=== PATIENT | female | born 1990 | race Caucasian/White ===

== ENCOUNTER 2018-01-10 20:27 | Emergency (ER) | payer BC, OTHER ==
[2018-01-10 21:58] LABS: ABS Basophils 0.1 10^3/ul (0-0.2); ABS Eosinophils 0.2 10^3/ul (0-0.6); ABS Lymphocytes 3.6 10^3/ul (1.0-4.8); ABS Monocytes 0.7 10^3/ul (0-0.8); ABS Neutrophils 6.9 10^3/ul (1.5-7.7); ABS Nucleated RBC 0 10^3/ul; Eosinophil % 1.7 % (0-6); Hematocrit 35 % (35-47); Hemoglobin 11.9 g/dl (12.0-16.0); Mean Corpuscular HGB Conc 35 g/dl (31-36); Mean Corpuscular Hemoglobin 30 pg (27-31); Mean Corpuscular Volume 86 fL (80-97); Mean Platelet Volume 8.7 um3 (7.4-10.4); Nucleated Red Blood Cells % 0.1; Platelet Count 330 10^3/ul (150-450); Red Cell Distribution Width 13 % (10.5-15); White Blood Count 11.4 10^3/ul (3.5-10.8)
[2018-01-10 22:00] LABS: Urine Appearance Clear; Urine Blood Negative (Negative); Urine Color Straw; Urine Ketones Negative (Negative); Urine Protein Negative (Negative); Urine Specific Gravity 1.003 (1.010-1.030); Urine Urobilinogen Negative (Negative)
[2018-01-10 22:15] LABS: EGFR Non-African American 88.6 (>60)
--- NOTE | 2018-01-10 22:58 | ED ---
HPI Cardiac - HPI Summary HPI Summary: Patient here with diffuse abdominal pain 1 week. Tonight she is experiencing shortness of breath with pain radiating into her right shoulder blade area. She describes the SOB as being cause by a full ab - feels she has air trapped along her upper abdomen. She denies nausea, vomiting however has had some diarrhea and typically she's constipated. Admits she had Montes's last night. Has been feeling bloated and having which she describes as indigestion. Denies fevers, chills, chest pain, urinary symptoms, flank pain, bloody cough, vaginal irritation/discharge. She has asthma and used an albuterol inhaler prior to arrival tonight - does not feel it helped her sx. Admits once the pain set in, her breathing became more difficult, triggering anxiety. She also admits to cervical and upper thoracic disc herniations - was moving furniture recently. Denies acute pain, numbness, tingling, weakness. - History of Current Complaint Chief Complaint: EDShortnessOfBreath Stated Complaint: DIFF BREATHING Time Seen by Provider: 01/10/18 20:39 Hx Obtained From: Patient Pain Intensity: 3 - Allergy/Home Medications Allergies/Adverse Reactions: Allergies Allergy/AdvReac Type Severity Reaction Status Date / Time bupropion [From Wellbutrin] Allergy Anaphylatic Verified 01/10/18 20:51 Shock Home Medications: Home Medications Albuterol HFA INHALER* [Ventolin HFA Inhaler*] 2 puff INH Q4H PRN 01/10/18 [ History Confirmed 01/10/18] Cholecalciferol TAB* [Vitamin D TAB*] 1,000 unit PO DAILY 01/10/18 [History Confirmed 01/10/18] Ibuprofen TAB* [Motrin TAB* 800 MG] 800 mg PO TID PRN 01/10/18 [History Confirmed 01/10/18] Multivitamins/Minerals TAB* [Theragran/minerals TAB*] 1 tab PO DAILY 01/10/18 [ History Confirmed 01/10/18] Multivitamins/Minerals TAB* [Theragran/minerals TAB*] 1 tab PO DAILY 01/10/18 [ History Confirmed 01/10/18] Norethindrone AC-Eth Estradiol [Junel 10/23] 1 tab PO DAILY 01/10/18 [History Confirmed 01/10/18] Sertraline* [Zoloft*] 100 mg PO DAILY 01/10/18 [History Confirmed 01/10/18] PMH/Surg Hx/FS Hx/Imm Hx Previously Healthy: Yes - Immunization History Date of Influenza Vaccine: has not received Infectious Disease History: No Infectious Disease History: Denies: Traveled Outside the [place] in Last 30 Days - Social History Alcohol Use: None Substance Use Type: Reports: None Smoking Status (MU): Never Smoked Tobacco Physical Exam Triage Information Reviewed: Yes Vital Signs On Initial Exam: Initial Vitals Temp Pulse Resp BP Pulse Ox 98.5 F 74 16 114/61 99 01/10/18 20:35 01/10/18 20:35 01/10/18 20:35 01/10/18 20:35 01/10/18 20:35 Vital Signs Reviewed: Yes Appearance: Positive: Well-Appearing, No Pain Distress, Well-Nourished Skin: Positive: Warm, Skin Color Reflects Adequate Perfusion, Dry Head/Face: Positive: Normal Head/Face Inspection Eyes: Positive: Normal, EOMI, Conjunctiva Clear - anicteric sclera ENT: Positive: Normal ENT inspection, Hearing grossly normal, Pharynx normal, TMs normal. Negative: Tonsillar swelling, Tonsillar exudate Neck: Positive: Supple, Nontender, No Lymphadenopathy Respiratory/Lung Sounds: Positive: Clear to Auscultation, Breath Sounds Present. Negative: Rales, Rhonchi, Stridor, Tracheal Deviation, Wheezes, Unable to speak in full sentences, Fatigue Cardiovascular: Positive: Normal, Pulses are Symmetrical in both Upper and Lower Extremities, S1, S2. Negative: Murmur, Rub, Leg Edema Left, Leg Edema Right - (-) Vikash's Abdomen Description: Positive: Soft, Distended - mild, Other: - diffuse TTP but most tender in RUQ - + García's. Negative: CVA Tenderness (R), CVA Tenderness ( L), Guarding Bowel Sounds: Positive: Present Musculoskeletal: Positive: Normal, Strength/ROM Intact Neurological: Positive: Normal, Sensory/Motor Intact, Alert, Oriented to Person Place, Time, CN Intact II-III Psychiatric: Positive: Normal Diagnostics - Vital Signs Vital Signs Temp Pulse Resp BP Pulse Ox 01/10/18 22:30 87 103/52 98 01/10/18 22:00 75 98/40 100 01/10/18 21:30 88 114/67 100 01/10/18 21:00 77 111/58 100 01/10/18 20:49 77 99 01/10/18 20:47 114/61 01/10/18 20:35 98.5 F 74 16 114/61 99 - Laboratory Lab Results: Lab Results 01/10/18 01/10/18 01/10/18 Range/Units 21:40 21:40 21:40 WBC 11.4 H (3.5-10.8) 10^3/ul RBC 4.00 (4.0-5.4) 10^6/ul Hgb 11.9 L (12.0-16.0) g/dl Hct 35 (35-47) % MCV 86 (80-97) fL MCH 30 (27-31) pg MCHC 35 (31-36) g/dl RDW 13 (10.5-15) % Plt Count 330 (150-450) 10^3/ul MPV 8.7 (7.4-10.4) um3 Neut % (Auto) 60.1 (38-83) % Lymph % (Auto) 31.0 (25-47) % [place] % (Auto) 6.2 (0-7) % Eos % (Auto) 1.7 (0-6) % Baso % (Auto) 1.0 (0-2) % Absolute Neuts (auto) 6.9 (1.5-7.7) 10^3/ul Absolute Lymphs (auto) 3.6 (1.0-4.8) 10^3/ul Absolute Monos (auto) 0.7 (0-0.8) 10^3/ul Absolute Eos (auto) 0.2 (0-0.6) 10^3/ul Absolute Basos (auto) 0.1 (0-0.2) 10^3/ul Absolute Nucleated RBC 0 10^3/ul Nucleated RBC % 0.1 Sodium 139 (139-145) mmol/L Potassium 3.5 (3.5-5.0) mmol/L Chloride 106 (101-111) mmol/L Carbon Dioxide 25 (22-32) mmol/L Anion Gap 8 (2-11) mmol/L BUN 13 (6-24) mg/dL Creatinine 0.78 (0.51-0.95) mg/dL Est GFR ( Amer) 113.9 (>60) Est GFR (Non-Af Amer) 88.6 (>60) BUN/Creatinine Ratio 16.7 (8-20) Glucose 90 (70-100) mg/dL Lactic Acid (0.5-2.0) mmol/L Calcium 9.4 (8.6-10.3) mg/dL Magnesium 2.0 (1.9-2.7) mg/dL Total Bilirubin 0.20 (0.2-1.0) mg/dL AST 23 (13-39) U/L ALT 21 (7-52) U/L Alkaline Phosphatase 73 (34-104) U/L C-Reactive Protein 17.54 H (< 5.00) mg/L Total Protein 7.1 (6.4-8.9) g/dL Albumin 3.9 (3.2-5.2) g/dL Globulin 3.2 (2-4) g/dL Albumin/Globulin Ratio 1.2 (1-3) Lipase 16 (11.0-82.0) U/L Beta HCG, Quant < 0.60 mIU/mL Urine Color Straw Urine Appearance Clear Urine pH 9.0 (5-9) Ur Specific [place] 1.003 L (1.010-1.030) Urine Protein Negative (Negative) Urine Ketones Negative (Negative) Urine Blood Negative (Negative) Urine Nitrate Negative (Negative) Urine Bilirubin Negative (Negative) Urine Urobilinogen Negative (Negative) Ur Leukocyte Esterase Negative (Negative) Urine Glucose Negative (Negative) 01/10/18 Range/Units 21:40 WBC (3.5-10.8) 10^3/ul RBC (4.0-5.4) 10^6/ul Hgb (12.0-16.0) g/dl Hct (35-47) % MCV (80-97) fL MCH (27-31) pg MCHC (31-36) g/dl RDW (10.5-15) % Plt Count (150-450) 10^3/ul MPV (7.4-10.4) um3 Neut % (Auto) (38-83) % Lymph % (Auto) (25-47) % [place] % (Auto) (0-7) % Eos % (Auto) (0-6) % Baso % (Auto) (0-2) % Absolute Neuts (auto) (1.5-7.7) 10^3/ul Absolute Lymphs (auto) (1.0-4.8) 10^3/ul Absolute Monos (auto) (0-0.8) 10^3/ul Absolute Eos (auto) (0-0.6) 10^3/ul Absolute Basos (auto) (0-0.2) 10^3/ul Absolute Nucleated RBC 10^3/ul Nucleated RBC % Sodium (139-145) mmol/L Potassium (3.5-5.0) mmol/L Chloride (101-111) mmol/L Carbon Dioxide (22-32) mmol/L Anion Gap (2-11) mmol/L BUN (6-24) mg/dL Creatinine (0.51-0.95) mg/dL Est GFR ( Amer) (>60) Est GFR (Non-Af Amer) (>60) BUN/Creatinine Ratio (8-20) Glucose (70-100) mg/dL Lactic Acid 1.9 (0.5-2.0) mmol/L Calcium (8.6-10.3) mg/dL Magnesium (1.9-2.7) mg/dL Total Bilirubin (0.2-1.0) mg/dL AST (13-39) U/L ALT (7-52) U/L Alkaline Phosphatase (34-104) U/L C-Reactive Protein (< 5.00) mg/L Total Protein (6.4-8.9) g/dL Albumin (3.2-5.2) g/dL Globulin (2-4) g/dL Albumin/Globulin Ratio (1-3) Lipase (11.0-82.0) U/L Beta HCG, Quant mIU/mL Urine Color Urine Appearance Urine pH (5-9) Ur Specific [place] (1.010-1.030) Urine Protein (Negative) Urine Ketones (Negative) Urine Blood (Negative) Urine Nitrate (Negative) Urine Bilirubin (Negative) Urine Urobilinogen (Negative) Ur Leukocyte Esterase (Negative) Urine Glucose (Negative) Result Diagrams: 01/10/18 21:40 01/10/18 21:40 Lab Statement: Any lab studies that have been ordered have been reviewed, and results considered in the medical decision making process. Discharge - Sign-Out/Discharge Documenting (check all that apply): Discharge - Discharge Plan Condition: Stable Disposition: HOME Patient Education Materials: Thoracic Pain (ED) Referrals: Yaron Kennedy NP [Primary Care Provider] - Additional Instructions: The definitive cause of your symptoms were not identified this evening. However , acute life-threatening condition such as aortic dissection, pulmonary embolism , pneumothorax, heart attack, pneumonia, gallbladder infection/obstruction were ruled out. It is suspected that part of your symptoms in the right posterior shoulder blade area were triggered by recent activity during moving. He may continue to try NSAIDs along with heat alternating with ice and breathing exercises. Follow up with PCP in the next couple of days for recheck of symptoms and more testing as needed. Call later today to schedule an appointment. *If you develop return of shortness of breath, fever, difficulty swallowing, intractable vomiting or diarrhea, bloody cough, dizziness or syncope, return to the emergency department - Billing Disposition and Condition Condition: STABLE Disposition: HOME
[2018-01-11] MEDS ORDERED: Diazepam TAB(*) 5 MG PO ONE (01:25)
[2018-01-11] MEDS ORDERED: Ketorolac INJ* 30 MG/ML 1 ML VIAL IV PUSH ONE (01:25)
[2018-01-11 02:03] VITALS: BP 105/70
--- NOTE | 2018-01-11 07:20 | RAD ---
INDICATION: Right shoulder blade pain, bloating. COMPARISON: There are no prior studies available for comparison. TECHNIQUE: Multiple real-time images of the right upper quadrant were obtained. FINDINGS: The gallbladder appear normal. No gallbladder wall thickening or pericholecystic fluid is present. No intra or extrahepatic ductal distention is present. The common bile duct measured 0.1 cm in diameter. The liver is normal in size without significant focal abnormality. The pancreas is partially obscured by overlying bowel gas. The right kidney is normal in size without evidence for hydronephrosis. IMPRESSION: NEGATIVE EXAM.
--- NOTE | 2018-01-11 07:33 | RAD ---
INDICATION: Shortness of breath. COMPARISON: There are no prior studies available for comparison. TECHNIQUE: A portable view of the chest was obtained. FINDINGS: Cardiac and mediastinal contours appear to be within normal limits. The lungs are clear. No pleural effusion is seen. IMPRESSION: NO EVIDENCE FOR ACUTE DISEASE.
== END 2018-01-11 01:45 | disposition home or self-care (01) ==
LOC: SUPCPDRO 20:27 → ED 20:27
DX: R06.02 Shortness of breath (principal); M25.511 Pain in right shoulder; R10.84 Generalized abdominal pain; M50.20 Other cervical disc displacement, unspecified cervical region; M51.24 Other intervertebral disc displacement, thoracic region; Z32.02 Encounter for pregnancy test, result negative; Z88.8 Allergy status to other drugs, medicaments and biological substances
CPT/HCPCS: 36415; 71045; 76705; 80053; 81003; 83605; 83690; 83735; 84484; 84702; 85025; 85379; 86140; 93005; 96374; 99284; A9270-GY; J1885

== ENCOUNTER 2019-06-29 17:46 | Emergency (ER) | payer MEDICAID ==
--- OUTSIDE RECORDS SUMMARY | 2019-06-29 18:05 | XMS REPORT | Continuity of Care Document ---
:1990 External Reference #:[id number] Author Name Yaron Kennedy NRandy Address [address] [place] [id number] Problems Active Problems Provider Date Chronic pain Yaron Kennedy NRandy Onset: 05/04/2017 Note: R neck/shoulder Mood disorder Yaron Kennedy N.Tiffany Onset: 06/18/2017 Social History Type Date Description Comments Sex Unknown Tobacco Use Start: Unknown Never Smoked Cigarettes Tobacco Use Start: Unknown Patient has never smoked Smoking Status Reviewed: 11/12/17 Patient has never smoked Allergies, Adverse Reactions, Alerts Active Allergies Reaction Severity Comments Date Wellbutrin 06/18/2017 Inactive Allergies NKDA 07/22/2006 Medications Active Medications SIG Qnty Indications Ordering Date Provider Prilosec OTC 1 by mouth 30tabs Brent, 06/20/2019 20mg Tablets every day Yaron N.P. Albuterol Sulfate HFA 2 puffs four 1units Brent, 12/06/2018 times a day as Mashelle, N.P. 108(90Base) mcg/Act needed Aerosol Loratadine 1 by mouth 30tabs Brent, 04/07/2018 10mg Tablets every day Mashelle, N.P. Symbicort inhale two 10.2units Brent, 04/07/2018 160-4.5mcg/Act puffs by mouth Mashelle, N.P. Aerosol twice a day Hydroxyzine HCL 1-2 by mouth 30tabs Brent, 01/18/2018 25mg three times a Mashelle, N.P. Tablets day as needed Ibuprofen 1 by mouth 60tabs Brent, 11/02/2016 800mg Tablets three times a Mashelle, N.P. day with food Sertraline HCL 1 by mouth 90tabs Brent, 09/22/2016 100mg every day Yaron, N.P. Tablets Norethindrone & Unknown Ethinyl Estradiol Ferrous Fumarate 0.8-25mg-mcg Chewtabs History Medications Cephalexin 1 by mouth four 28caps Kirill Kennedyjames, 04/24/2019 - 500mg times a day x 7 N.P. 06/20/2019 Capsules days Immunizations CPT Code Status Date Vaccine Lot # [id number] Given 08/09/2018 Influenza Vac, Quadrivalent, Split, 0.5mL Dosage, Im Use 38871 Given 05/04/2016 MMR Virus Immunization 39927 Given 05/04/2016 Tdap (Adacel) Ages 7 And Above Only Q2038 Given 05/24/2015 Fluzone Trivalent Immunization Q2038 Given 07/18/2013 Fluzone Trivalent Immunization 67895 Given 07/07/2007 HPV Vaccine (Gardasil) 3 Dose Schedule 30199 Given 07/07/2007 HPV Vaccine (Gardasil) 3 Dose Schedule [id number] 86329 Given 03/07/2007 HPV Vaccine (Gardasil) 3 Dose Schedule [id number] 85584 Given 01/04/2007 HPV Vaccine (Gardasil) 3 Dose Schedule [id number] 24775 Given 07/22/2006 Tdap (Adacel) Ages 7 And Above Only C [id number] 22861 Given 07/22/2006 DTP Immunization 57631 Given 07/22/2006 DTaP Immunization 6 Yrs & Younger Q2038 Ordered 06/14/2013 Fluzone Trivalent Immunization 28931 Refused 06/20/2019 Influenza Vac, Quadrivalent, Split, 0.5mL Dosage, Im Use 89224 Refused 07/22/2018 Influenza Vac, Quadrivalent, Split, 0.5mL Dosage, [place] Use 72512 Refused 07/22/2018 Pneumococcal 23 Immunization Adult Or Immunosuppressed Patient 90815 Refused 11/12/2017 Influenza Vac, Quadrivalent, Split, 0.5mL Dosage, Im Use Vital Signs Date Vital Result Comment 06/20/2019 2:01pm Body Temperature 98.2 F Weight 163.25 lb Heart Rate 83 /min BP Systolic 115 mmHg BP Diastolic 58 mmHg O2 % BldC Oximetry 98 % 04/24/2019 10:58am Body Temperature 98.2 F Weight 162.12 lb Heart Rate 86 /min BP Systolic 90 mmHg BP Diastolic 50 mmHg Height 64 inches 5'4" O2 % BldC Oximetry 97 % BMI (Body Mass Index) 27.8 kg/m2 Results Description No Information Available Procedures Date Code Description Status 04/28/2018 [id number] Mammogram Completed Medical Devices Description No Information Available Encounters Type Date Location Provider Dx Diagnosis Office Visit 04/24/2019 Yaron Santana, E66.9 Obesity, unspecified 11:00a N.P. L03.116 Cellulitis of LEFT lower limb T63.441A Toxic effect of venom of bees, accidental, init Z68.27 Body mass index (BMI) 27.0-27.9, adult Office Visit 03/23/2019 2:15p Yaron Santana, N.P. M54.2 Cervicalgia M25.511 Pain in RIGHT shoulder Office Visit 03/23/2019 2:00p Yaron Santana, F41.9 Anxiety disorder, N.P. unspecified F39 Unspecified mood [affective] disorder G25.81 Restless legs syndrome Z68.27 Body mass index (BMI) 27.0-27.9, adult Assessments Date Code Description Provider 06/20/2019 M54.2 Cervicalgia Yaron Kennedy, N.P. 06/20/2019 Z28.21 Immunization not carried out because of Yaron Kennedy, N.P. patient refusal 06/20/2019 M25.511 Pain in RIGHT shoulder Yaron Kennedy, N.P. 06/20/2019 F41.9 Anxiety disorder, unspecified Yaron Kennedy, N.P. 06/20/2019 F39 Unspecified mood [affective] disorder Yaron Kennedy, N.P. 06/20/2019 K21.9 Gastro-esophageal reflux disease without Yaron Kennedy, N.P. esophagitis 04/24/2019 E66.9 Obesity, unspecified Yaron Kennedy, N.P. 04/24/2019 L03.116 Cellulitis of LEFT lower limb Yaron Kennedy, N.P. 04/24/2019 T63.441A Toxic effect of venom of bees, accidental Yaron Kennedy N.P. (unintentional), initial encounter 04/24/2019 Z68.27 Body mass index (BMI) 27.0-27.9, adult Yaron Kennedy N.P. 03/23/2019 M54.2 Cervicalgia Yaron Kennedy N.P. 03/23/2019 F41.9 Anxiety disorder, unspecified Yaron Kennedy N.P. 03/23/2019 M25.511 Pain in RIGHT shoulder Yaron Kennedy N.P. 03/23/2019 F39 Unspecified mood [affective] disorder Yaron Kennedy N.P. 03/23/2019 G25.81 Restless legs syndrome Yaron Kennedy N.P. 03/23/2019 Z68.27 Body mass index (BMI) 27.0-27.9, adult Yaron Kennedy N.Sanaz. Plan of Treatment Future Appointment(s):09/19/2019 1:45 pm - Yaron Kennedy N.Tiffany at [email or web address] 1:30 pm - Yaron Kennedy N.PSinai at [id number]/20/2019 - Yaron Kennedy N.PSinaiM54.2 CervicalgiaComments:stable at this timeuse meds sparingly, warm heat ROM execises report [id number] Pain in RIGHT shoulderComments:stable at this timerecheck 3 mo and prn if worseningAllNew Medication:Prilosec OTC 20 mg - 1 by mouth every day Functional Status Description No Information Available Mental Status Description No Information Available Referrals Description No Information Available
--- OUTSIDE RECORDS SUMMARY | 2019-06-29 18:05 | XMS REPORT | Continuity of Care Document ---
:1990 External Reference #:[id number] Author Name Yaron Kennedy NRandy Address [address] [place] [id number] Problems Active Problems Provider Date Chronic pain [...] CPT Code Status Date Vaccine Lot # [id number] Given 08/09/2018 Influenza Vac, Quadrivalent, Split, 0.5mL Dosage, [place] Use 09001 Given 05/04/2016 MMR Virus Immunization 34071 Given 05/04/2016 Tdap (Adacel) Ages 7 And Above Only Q2038 Given 05/24/2015 Fluzone Trivalent Immunization Q2038 Given 07/18/2013 Fluzone Trivalent Immunization 94391 Given 07/07/2007 HPV Vaccine (Gardasil) 3 Dose Schedule 52517 Given 07/07/2007 HPV Vaccine (Gardasil) 3 Dose Schedule 1060U 48659 Given 03/07/2007 HPV Vaccine (Gardasil) 3 Dose Schedule 0244U 14625 Given 01/04/2007 HPV Vaccine (Gardasil) 3 Dose Schedule [id number] 04121 Given 07/22/2006 Tdap (Adacel) Ages 7 And Above Only C [id number] 91761 Given 07/22/2006 DTP Immunization 49377 Given 07/22/2006 DTaP Immunization 7 Yrs & Younger Q2038 Ordered 06/14/2013 Fluzone Trivalent Immunization 82599 Refused 06/20/2019 Influenza Vac, Quadrivalent, Split, 0.5mL Dosage, Im Use 00069 Refused 07/22/2018 Influenza Vac, Quadrivalent, Split, 0.5mL Dosage, Im Use 34054 Refused 07/22/2018 Pneumococcal 23 Immunization Adult Or Immunosuppressed Patient 84477 Refused 11/12/2017 Influenza Vac, Quadrivalent, Split, 0.5mL [...] Available Procedures Date Code Description Status 04/28/2018 [id number] Mammogram Completed Medical Devices Description No Information [...] Unspecified mood [affective] disorder Yaron Kennedy, N.P. 04/24/2019 E66.9 Obesity, unspecified Yaron Kennedy, N.P. 04/24/2019 L03.116 Cellulitis of LEFT lower limb Yaron Kennedy, N.P. 04/24/2019 T63.441A Toxic effect of venom of bees, accidental Yaron Kennedy, N.P. (unintentional), initial encounter 04/24/2019 Z68.27 Body mass index (BMI) 27.0-27.9, adult Yaron Kennedy, N.P. 03/23/2019 M54.2 Cervicalgia Yaron Kennedy, N.P. 03/23/2019 F41.9 Anxiety disorder, unspecified Yaron Kennedy, N.P. 03/23/2019 M25.511 Pain in RIGHT shoulder Yaron Kennedy N.P. 03/23/2019 F39 Unspecified mood [affective] disorder Yaron Kennedy N.P. 03/23/2019 G25.81 Restless legs syndrome Yaron Kennedy N.P. 03/23/2019 Z68.27 Body mass index (BMI) 27.0-27.9, adult Yaron Kennedy, N.P. Plan of Treatment Future Appointment(s):09/19/2019 1:45 pm - Yaron Kennedy, N.P. at [id number] 1:30 pm - Yaron Kennedy, N.P. at [id number]/20/2019 - Yaron Kennedy, N.P.Z28.21 Immunization not carried out because of patient refusalComments:patient counseled about benefits of receiving flu vaccinedeclines at this time for non-specific [id number] Anxiety disorder, [id number] Unspecified mood [affective] disorderAllNew Medication:Prilosec OTC 20 mg - 1 by mouth every day Functional Status Description No Information Available Mental Status Description No Information Available Referrals Description No Information Available
--- OUTSIDE RECORDS SUMMARY | 2019-06-29 18:05 | XMS REPORT | Continuity of Care Document ---
:1990 External Reference #:[id number] Author Name Yaron Kennedy NRandy Address [address] [place] [id number] Problems Active Problems Provider Date Chronic pain [...] CPT Code Status Date Vaccine Lot # [id number] Given 08/09/2018 Influenza Vac, Quadrivalent, Split, 0.5mL Dosage, Im Use 95830 Given 05/04/2016 MMR Virus Immunization 41905 Given 05/04/2016 Tdap (Adacel) Ages 7 And Above Only Q2038 Given 05/24/2015 Fluzone Trivalent Immunization Q2038 Given 07/18/2013 Fluzone Trivalent Immunization 78013 Given 07/07/2007 HPV Vaccine (Gardasil) 3 Dose Schedule 92310 Given 07/07/2007 HPV Vaccine (Gardasil) 3 Dose Schedule 1060U 39563 Given 03/07/2007 HPV Vaccine (Gardasil) 3 Dose Schedule 0244U 71764 Given 01/04/2007 HPV Vaccine (Gardasil) 3 Dose Schedule 0244U 59700 Given 07/22/2006 Tdap (Adacel) Ages 7 And Above Only C [id number] 43512 Given 07/22/2006 DTP Immunization 36387 Given 07/22/2006 DTaP Immunization 6 Yrs & Younger Q2038 Ordered 06/14/2013 Fluzone Trivalent Immunization 69239 Refused 06/20/2019 Influenza Vac, Quadrivalent, Split, 0.5mL Dosage, [place] Use 26164 Refused 07/22/2018 Influenza Vac, Quadrivalent, Split, 0.5mL Dosage, [place] Use 20284 Refused 07/22/2018 Pneumococcal 23 Immunization Adult Or Immunosuppressed Patient 01102 Refused 11/12/2017 Influenza Vac, Quadrivalent, Split, 0.5mL Dosage, Im Use Vital Signs Date Vital Result Comment 06/29/2019 1:38pm Body Temperature 98.2 F Weight 160.25 lb Heart Rate 97 /min BP Systolic 90 mmHg BP Diastolic 56 mmHg O2 % BldC Oximetry 98 % 06/20/2019 2:01pm Body Temperature 98.2 F Weight 163.25 lb Heart Rate 83 /min BP Systolic 115 mmHg BP Diastolic 58 mmHg O2 % BldC Oximetry 98 % Results Description No Information Available Procedures Date Code Description Status 04/28/2018 [id number] Mammogram Completed Medical Devices Description No Information [...] 27.0-27.9, adult Assessments Date Code Description Provider 06/29/2019 R10.10 Upper abdominal pain, unspecified Yaron Kennedy, N.P. 06/20/2019 M54.2 Cervicalgia Yaron Kennedy, N.P. 06/20/2019 [...] of venom of bees, accidental Yaron Kennedy N.PSinai (unintentional), initial encounter 04/24/2019 Z68.27 Body mass [...] Future Appointment(s):09/19/2019 1:45 pm - Yaron Kennedy N.P. at [email or web address] 1:30 pm - Yaron Kennedy N.PSinai at [id number]/29/2019 - Yaron Kennedy N.PSinaiR10.10 Upper abdominal pain, unspecifiedComments:clear liq diet for 24h, advance to bland, low fat diet as toldrink plenty of fluidswill obtain U/S gallbladder and have pt f/u Functional Status Description No Information Available Mental Status Description No Information Available Referrals Description No Information Available
[2019-06-29 19:25] LABS: ABS Basophils 0.1 10^3/ul (0-0.2); ABS Eosinophils 0.1 10^3/ul (0-0.6); ABS Lymphocytes 2.1 10^3/ul (1.0-4.8); ABS Monocytes 0.4 10^3/ul (0-0.8); ABS Neutrophils 5.3 10^3/ul (1.5-7.7); Eosinophil % 0.7 %; Hematocrit 37 % (35-47); Hemoglobin 12.8 g/dL (12.0-16.0); Lymphocyte % 26.7 %; Mean Corpuscular HGB Conc 35 g/dL (31-36); Mean Corpuscular Hemoglobin 30 pg (27-31); Mean Corpuscular Volume 85 fL (80-97); Mean Platelet Volume 7.9 fL (7.4-10.4); Platelet Count 373 10^3/uL (150-450); Red Blood Count 4.32 10^6 /uL (3.70-4.87); Red Cell Distribution Width 13 % (10-15); White Blood Count 7.8 10^3/uL (3.5-10.8)
[2019-06-29 19:41] LABS: ALT 26 U/L (7-52); AST 32 U/L (13-39); Albumin 4.2 g/dL (3.2-5.2); Albumin/Globulin Ratio 1.2 (1-3); Alkaline Phosphatase 72 U/L (34-104); Anion Gap 8 mmol/L (2-11); BUN/Creatinine Ratio 15.6 (8-20); Blood Urea Nitrogen 10 mg/dL (6-24); C Reactive Protein 45.21 mg/L (<8.01); CO2 Carbon Dioxide 26 mmol/L (22-32); Calcium 9.4 mg/dL (8.6-10.3); Chloride 102 mmol/L (101-111); EGFR African American 132.7 (>60); EGFR Non-African American 109.7 (>60); Globulin 3.6 g/dL (2-4); Glucose 90 mg/dL (70-100); Potassium 3.5 mmol/L (3.5-5.0); Sodium 136 mmol/L (135-145); Total Protein 7.8 g/dL (6.4-8.9)
[2019-06-29 19:47] LABS: HCG Pregnancy < 0.60 mIU/mL
[2019-06-29 19:48] LABS: Urine Appearance Clear; Urine Bacteria 1+ (Absent); Urine Bilirubin Negative (Negative); Urine Blood 3+ (Negative); Urine Color Yellow; Urine Glucose Negative (Negative); Urine Ketones Negative (Negative); Urine Nitrite Negative (Negative); Urine Protein Negative (Negative); Urine Red Blood Cell Trace(0-2/hpf) (Absent); Urine Specific Gravity 1.021 (1.010-1.030); Urine Squamous Epithelial Cell Present (Absent); Urine Urobilinogen Negative (Negative); Urine White Blood Cell Absent (Absent)
[2019-06-29] MEDS ORDERED: Pantoprazole IV* 40 MG IV ONE (20:13)
[2019-06-29] MEDS ORDERED: NS 0.9% 1000 ML** 1,000 ML IV ONE (20:13)
--- NOTE | 2019-06-29 22:38 | ED ---
GI/ HPI - HPI Summary HPI Summary: 29 year old female presents with abdominal pain for the past 4 days. States she has a history of acid reflux. She has been getting worse. She is pain is greatest in the epigastric. Pain tends pain in the right upper quadrant. Does not change with food. Denies any chest or shortness breath. She admits to nausea but no vomiting. She admits to some diarrhea. No urinary symptoms. Has no medical conditions. Patient is currently on her period. - History of Current Complaint Chief Complaint: EDAbdPain Time Seen by Provider: 06/29/19 19:54 Stated Complaint: ABD PAIN PER PT Pain Intensity: 7 - Allergy/Home Medications Allergies/Adverse Reactions: Allergies Allergy/AdvReac Type Severity Reaction Status Date / Time bupropion [From Wellbutrin] Allergy Anaphylatic Verified 01/10/18 20:51 Shock Home Medications: Home Medications Norethindrone-E.estradiol-Iron [Junel Fe 10/23 1-20 mg-Mcg] 1 tab PO DAILY [History Confirmed 06/29/19] PMH/Surg Hx/FS Hx/Imm Hx Endocrine/Hematology History: Denies: Hx Anticoagulant Therapy, Hx Blood Disorders, Hx Thyroid Disease, Hx Anemia, Hx Unexplained Bleeding Respiratory History: Reports: Hx Asthma - Immunization History Date of Influenza Vaccine: has not received Infectious Disease History: No Infectious Disease History: Denies: Traveled Outside the [place] in Last 30 Days - Family History Known Family History: Positive: Non-Contributory - Social History Alcohol Use: None Hx Substance Use: No Substance Use Type: Reports: None Hx Tobacco Use: No Smoking Status (MU): Never Smoked Tobacco Review of Systems Negative: Fever Negative: Chest Pain Negative: Shortness Of Breath Positive: Abdominal Pain, Diarrhea, Nausea. Negative: Vomiting All Other Systems Reviewed And Are Negative: Yes Physical Exam Triage Information Reviewed: Yes Vital Signs On Initial Exam: Initial Vitals Temp Pulse Resp BP Pulse Ox 99.2 F 91 18 137/81 97 06/29/19 17:48 06/29/19 17:48 06/29/19 17:48 06/29/19 17:48 06/29/19 17:48 Vital Signs Reviewed: Yes Appearance: Positive: Well-Appearing Skin: Positive: Warm, Dry Head/Face: Positive: Normal Head/Face Inspection Eyes: Positive: Normal, EOMI, BIPIN, Conjunctiva Clear ENT: Positive: Normal ENT inspection, Pharynx normal, TMs normal Respiratory/Lung Sounds: Positive: Clear to Auscultation, Breath Sounds Present Cardiovascular: Positive: Normal, RRR Abdomen Description: Positive: Soft, Other: - tenderness greatest in RUQ with mild tenderness LUQ and RLQ. Negative: CVA Tenderness (R), CVA Tenderness (L) Bowel Sounds: Positive: Present Musculoskeletal: Positive: Normal Neurological: Positive: Normal Psychiatric: Positive: Normal Diagnostics - Vital Signs Vital Signs Temp Pulse Resp BP Pulse Ox 06/29/19 17:48 99.2 F 91 18 137/81 97 - Laboratory Lab Results: Lab Results 06/29/19 06/29/19 06/29/19 Range/Units 18:38 19:15 19:15 WBC 7.8 (3.5-10.8) 10^3/uL RBC 4.32 (3.70-4.87) 10^6 /uL Hgb 12.8 (12.0-16.0) g/dL Hct 37 (35-47) % MCV 85 (80-97) fL MCH 30 (27-31) pg MCHC 35 (31-36) g/dL RDW 13 (10-15) % Plt Count 373 (150-450) 10^3/uL MPV 7.9 (7.4-10.4) fL Neut % (Auto) 66.9 % Lymph % (Auto) 26.7 % [place] % (Auto) 4.8 % Eos % (Auto) 0.7 % Baso % (Auto) 0.9 % Absolute Neuts (auto) 5.3 (1.5-7.7) 10^3/ul Absolute Lymphs (auto) 2.1 (1.0-4.8) 10^3/ul Absolute Monos (auto) 0.4 (0-0.8) 10^3/ul Absolute Eos (auto) 0.1 (0-0.6) 10^3/ul Absolute Basos (auto) 0.1 (0-0.2) 10^3/ul Absolute Nucleated RBC 0.0 10^3/ul Nucleated RBC % 0.0 Sodium 136 (135-145) mmol/L Potassium 3.5 (3.5-5.0) mmol/L Chloride 102 (101-111) mmol/L Carbon Dioxide 26 (22-32) mmol/L Anion Gap 8 (2-11) mmol/L BUN 10 (6-24) mg/dL Creatinine 0.64 (0.51-0.95) mg/dL Est GFR ( Amer) 132.7 (>60) Est GFR (Non-Af Amer) 109.7 (>60) BUN/Creatinine Ratio 15.6 (8-20) Glucose 90 (70-100) mg/dL Lactic Acid (0.5-2.0) mmol/L Calcium 9.4 (8.6-10.3) mg/dL Total Bilirubin 0.30 (0.2-1.0) mg/dL AST 32 (13-39) U/L ALT 26 (7-52) U/L Alkaline Phosphatase 72 (34-104) U/L C-Reactive Protein 45.21 H (<8.01) mg/L Total Protein 7.8 (6.4-8.9) g/dL Albumin 4.2 (3.2-5.2) g/dL Globulin 3.6 (2-4) g/dL Albumin/Globulin Ratio 1.2 (1-3) Lipase < 10 L (11.0-82.0) U/L Beta HCG, Quant < 0.60 mIU/mL Urine Color Yellow Urine Appearance Clear Urine pH 6.0 (5-9) Ur Specific [place] 1.021 (1.010-1.030) Urine Protein Negative (Negative) Urine Ketones Negative (Negative) Urine Blood 3+ A (Negative) Urine Nitrate Negative (Negative) Urine Bilirubin Negative (Negative) Urine Urobilinogen Negative (Negative) Ur Leukocyte Esterase Negative (Negative) Urine WBC (Auto) Absent (Absent) Urine RBC (Auto) Trace(0-2/hpf) (Absent) Ur Squamous Epith Cells Present A (Absent) Urine Bacteria 1+ A (Absent) Urine Glucose Negative (Negative) 06/29/19 Range/Units 19:15 WBC (3.5-10.8) 10^3/uL RBC (3.70-4.87) 10^6 /uL Hgb (12.0-16.0) g/dL Hct (35-47) % MCV (80-97) fL MCH (27-31) pg MCHC (31-36) g/dL RDW (10-15) % Plt Count (150-450) 10^3/uL MPV (7.4-10.4) fL Neut % (Auto) % Lymph % (Auto) % [place] % (Auto) % Eos % (Auto) % Baso % (Auto) % Absolute Neuts (auto) (1.5-7.7) 10^3/ul Absolute Lymphs (auto) (1.0-4.8) 10^3/ul Absolute Monos (auto) (0-0.8) 10^3/ul Absolute Eos (auto) (0-0.6) 10^3/ul Absolute Basos (auto) (0-0.2) 10^3/ul Absolute Nucleated RBC 10^3/ul Nucleated RBC % Sodium (135-145) mmol/L Potassium (3.5-5.0) mmol/L Chloride (101-111) mmol/L Carbon Dioxide (22-32) mmol/L Anion Gap (2-11) mmol/L BUN (6-24) mg/dL Creatinine (0.51-0.95) mg/dL Est GFR ( Amer) (>60) Est GFR (Non-Af Amer) (>60) BUN/Creatinine Ratio (8-20) Glucose (70-100) mg/dL Lactic Acid 0.8 (0.5-2.0) mmol/L Calcium (8.6-10.3) mg/dL Total Bilirubin (0.2-1.0) mg/dL AST (13-39) U/L ALT (7-52) U/L Alkaline Phosphatase (34-104) U/L C-Reactive Protein (<8.01) mg/L Total Protein (6.4-8.9) g/dL Albumin (3.2-5.2) g/dL Globulin (2-4) g/dL Albumin/Globulin Ratio (1-3) Lipase (11.0-82.0) U/L Beta HCG, Quant mIU/mL Urine Color Urine Appearance Urine pH (5-9) Ur Specific [place] (1.010-1.030) Urine Protein (Negative) Urine Ketones (Negative) Urine Blood (Negative) Urine Nitrate (Negative) Urine Bilirubin (Negative) Urine Urobilinogen (Negative) Ur Leukocyte Esterase (Negative) Urine WBC (Auto) (Absent) Urine RBC (Auto) (Absent) Ur Squamous Epith Cells (Absent) Urine Bacteria (Absent) Urine Glucose (Negative) Result Diagrams: 06/29/19 19:15 06/29/19 19:15 Lab Statement: Any lab studies that have been ordered have been reviewed, and results considered in the medical decision making process. - Ultrasound No standard instances Ultrasound Interpretation Completed By: Radiologist Summary of Ultrasound Findings: IMPRESSION: 1. No acute findings. No shadowing gallstones. 2. Hepatic steatosis. Mild hepatomegaly. 3. 6 mm nonobstructing right renal calculus. No hydronephrosis. Re-Evaluation - Re-Evaluation First Eval Re-Evaluation Time: 23:00 Change: Unchanged Comment: tenderness greatest in RUQ, nontender RLQ, tenderness in LLQ GIGU Course/Dx - Course Course Of Treatment: 29 year old female presents with abdominal pain for the past 4 days. States she has a history of acid reflux. She has been getting worse. She is pain is greatest in the epigastric. Pain tends pain in the right upper quadrant. Does not change with food. Denies any chest or shortness breath. She admits to nausea but no vomiting. She admits to some diarrhea. No urinary symptoms. Has no medical conditions. Patient is currently on her period. On exam tenderness greatest in the right upper quadrant. White blood cell count normal. CRP elevated. Urine shows no infection. gallbladder u/s shows no acute findings. discussed likely gastritis. will place on course of omeprazole. told follow up with GI if no improvment. patient understand and agrees with plan. - Diagnoses Differential Diagnoses - Female: Gall Bladder Disease, Gastroenteritis (Viral), Urinary Tract Infection Provider Diagnoses: Abdominal pain Discharge ED - Sign-Out/Discharge Documenting (check all that apply): Patient Departure Patient Received Moderate/Deep Sedation with Procedure: No - Discharge Plan Condition: Good Disposition: HOME Prescriptions: Omeprazole 20 mg PO DAILY #14 capsule.dr Patient Education Materials: Epigastric Pain (ED) Referrals: Oracio Gomez DO [Doctor of Osteopathy] - Yaron Kennedy NP [Primary Care Provider] - Additional Instructions: Take omeprazole once a day Avoid acidic foods Follow up with GI Return to ED if develop any new or worsening symptoms - Billing Disposition and Condition Condition: GOOD Disposition: Home
[2019-06-29] MEDS ORDERED: Ketorolac INJ* 30 MG/ML 1 ML VIAL IV PUSH ONE (22:56)
[2019-06-29] MEDS ORDERED: Ondansetron INJ* 2 MG/ML VIAL IV ONE (22:56)
[2019-06-30 01:17] VITALS: BP 109/73
== END 2019-06-30 01:04 | disposition home or self-care (01) ==
LOC: ED 17:46
DX: R10.9 Unspecified abdominal pain (principal); J45.909 Unspecified asthma, uncomplicated; K76.0 Fatty (change of) liver, not elsewhere classified; N20.0 Calculus of kidney; Z88.8 Allergy status to other drugs, medicaments and biological substances; Z79.899 Other long term (current) drug therapy
CPT/HCPCS: 36415; 76705; 80053; 81003; 81015; 83605; 83690; 84702; 85025; 86140; 87086; 96361; 96374; 96375; 99284; J1885; J2405